=== PATIENT | male | born 1965 | race Native Hawaiian/Other Pacific Islander ===

== ENCOUNTER 2016-10-12 13:15 | Emergency (ER) | payer OTHER, MEDICAID ==
[~2016-10-12] VITALS: Ht 170.2 cm; Wt 86.2 kg
--- NOTE | 2016-10-12 14:42 | NUR ---
Dr Morse at the bedside for eval and exam.
[2016-10-12] MEDS ORDERED: HYDROMORPHONE HCL 2 MG TABLET PO ONE (15:00)
[2016-10-12 15:03] VITALS: BP 120/79
--- NOTE | 2016-10-12 15:03 | NUR ---
Patient discharged to home in stable conditon. Written and verbal after care instructions given. Patient verbalizes understanding of instructions.
[2016-10-12] MEDS ORDERED: HYDROMORPHONE HCL 2 MG TABLET ONE (15:06)
== END 2016-10-12 15:04 | disposition home or self-care (01) ==
LOC: ER 13:15
DX: G89.29 Other chronic pain (principal); M54.5 Low back pain; F32.9 Major depressive disorder, single episode, unspecified; M19.90 Unspecified osteoarthritis, unspecified site; F41.9 Anxiety disorder, unspecified; Z98.890 Other specified postprocedural states
CPT/HCPCS: 99283; A4663

== ENCOUNTER 2017-04-10 16:31 | Emergency (ER) | payer MEDICAID, MEDICARE, OTHER ==
[~2017-04-10] VITALS: Ht 170.2 cm; Wt 86.2 kg
[2017-04-10] MEDS ORDERED: HYDROMORPHONE 4 MG TABLET (16:58)
[2017-04-10] MEDS ORDERED: ACETAMINOPHEN (16:58)
[2017-04-10] MEDS ORDERED: OXYCODONE (16:58)
[2017-04-10] MEDS ORDERED: RISPERIDONE PO (16:59)
[2017-04-10] MEDS ORDERED: DEPAKOTE PO (16:59)
[2017-04-10] MEDS ORDERED: PAXIL PO (16:59)
[2017-04-10] MEDS ORDERED: KETOROLAC TROMETHAMINE 30 MG INJ IM ONE (17:15)
[2017-04-10] MEDS ORDERED: KETOROLAC TROMETHAMINE 30 MG INJ ONE (17:29)
== END 2017-04-10 17:19 | disposition home or self-care (01) ==
LOC: ER 16:31
DX: G89.29 Other chronic pain (principal); M54.5 Low back pain; F17.200 Nicotine dependence, unspecified, uncomplicated
CPT/HCPCS: A4663; J1885